=== PATIENT | male | born 1995 | race Caucasian/White ===

== ENCOUNTER 2017-01-19 04:11 | Emergency (ER) | payer BC, OTHER ==
[~2017-01-19] VITALS: Ht 176.5 cm; Wt 70.0 kg
[2017-01-19 04:17] VITALS: TEMP 36.6; Ht 176.5 cm; Wt 70.0 kg
[2017-01-19 04:25] VITALS: O2SAT 98
--- NOTE | 2017-01-19 04:33 | EMERGENCY ROOM VISIT NOTE ---
History Report prepared by Brianna: Pratima Murcia Under the Supervision of: Dr. Christian Veloz D.O. First contact with patient: 04:15 Chief Complaint: ALCOHOL OVERDOSE Stated Complaint: ALCOHOL OVERDOSE History of Present Illness The patient is a 21 year old male who presents to the Emergency Room with complaints of persistent alcohol intoxication starting ORTHOPAEDIC DOCTOR. The patient presents to the ED by EMS. [place] by [place] police. He states that he was just trying to get home. He is here visiting his friends. He states that he "had a beer". He denies any abdominal pain or injury. He denies any drug use or tobacco use. He denies being on medications or previous surgery. Source of History: patient, nursing staff Onset: ORTHOPAEDIC DOCTOR Position: other (global) Quality: other (alcohol intoxication) Timing: other (persistent) Associated Symptoms: No abdominal pain Note: Pt denies any injury. Review of Systems See HPI for pertinent positives & negatives. A total of 10 systems reviewed and were otherwise negative. Past Medical & Surgical Medical Problems: (1) No Known Active Medical Problems Family History No pertinent family history stated. Social History Occupation Status: student Current/Historical Medications No Active Prescriptions or Reported Meds Allergies Coded Allergies: No Known Allergies (Unverified , 01/19/17) Physical Exam Vital Signs Date Time Temp Pulse Resp B/P (MAP) Pulse Ox O2 Delivery O2 Flow Rate FiO2 01/19/17 05:19 61 18 116/56 98 01/19/17 04:25 98 Room Air 01/19/17 04:17 98 Room Air 01/19/17 04:17 36.6 93 18 148/89 98 Room Air 01/19/17 04:17 93 Physical Exam GENERAL: Patient is awake, alert, non anxious appearing. EYES: The conjunctivae are clear. The pupils are dilated and reactive to light bilaterally. EARS, NOSE, MOUTH AND THROAT: The nose is without any evidence of any deformity. Mucous membranes are moist tongue is midline NECK: The neck is nontender and supple. RESPIRATORY: Normal respiratory effort is noted there is no evidence of wheezing rhonchi or rales CARDIOVASCULAR: Regular rate and rhythm noted there no murmurs rubs or gallops normal S1 normal S2 GASTROINTESTINAL: The abdomen is soft. Bowel sounds are present in all quadrants. Abdomen is nontender MUSCULOSKELETAL/EXTREMITIES: There is no evidence of gross deformity full range of motion is noted in the hips and shoulders SKIN: There is no obvious evidence of any rash. There are no petechiae, pallor or cyanosis noted. NEUROLOGIC: Patient is awake alert and oriented x3 Medical Decision & Procedures Laboratory Results 01/19/17 04:17 Test 01/19/17 04:17 Anion Gap 7.0 mmol/L (3-11) Est Creatinine Clear Calc Drug Dose 106.9 ml/min Estimated GFR () 112.2 Estimated GFR (Non- 96.8 BUN/Creatinine Ratio 10.8 (10-20) Calcium Level 8.8 mg/dl (8.5-10.1) Ethyl Alcohol mg/dL 248.0 mg/dl (0-3) Laboratory results per my review. ED Course 0418: The patient was evaluated in room A12A. A complete history and physical examination were performed. 0528: Upon reevaluation, the patient is resting comfortably. I discussed the results and treatment plan with him. He verbalized agreement of the treatment plan. He was discharged home with a sober friend. Medical Decision Prior records/ancillary studies reviewed. Triage Nursing notes reviewed. Additional history obtained from EMS. The patient's history was concerning for altered mental status and a possible alcohol overdose. Differential diagnosis: Etiologies such as alcohol intoxication, toxicologic, infection, hypoglycemia, electrolyte abnormalities, cardiac sources, intracerebral event, neurologic, as well as others were entertained. Medication Reconciliation: I attest that I have personally reviewed the patient' s current medications list. Blood pressure screening: Patient was found to have normal blood pressure on screening and does not require follow-up. The patient is a 21-year-old male who presented to the emergency department for an evaluation of alcohol intoxication. The patient had no signs of trauma and there is no history of trauma. The patient was not severely alcohol intoxicated and was awake and alert upon arrival to the emergency department. I discussed the patient's laboratory results with him. He was reevaluated into he was no longer clinically intoxicated. He was able to be discharged to home. He was encouraged to avoid any further alcoholic beverages. He is also encouraged to avoid operating any heavy machinery including driving a vehicle for next 24 hours. He was also encouraged return to the emergency apartment immediately if symptoms change worsen or the need arises. Impression Primary Impression: Alcohol intoxication Scribe Attestation The scribe's documentation has been prepared under my direction and personally reviewed by me in its entirety. I confirm that the note above accurately reflects all work, treatment, procedures, and medical decision making performed by me. Departure Information Dispostion Home / Self-Care Prescriptions No Active Prescriptions or Reported Meds Referrals No Doctor, Assigned (PCP) Forms HOME CARE DOCUMENTATION FORM, IMPORTANT VISIT INFORMATION Patient Instructions ED Alcohol Intoxication, My [facility] Additional Instructions Drink plenty clear liquids. Avoid any further alcoholic beverages. Do not operate any heavy machinery including driving a vehicle for next 24 hours because your alcohol level still be elevated. Problem Qualifiers Primary Impression: Alcohol intoxication Complication of substance-induced condition: uncomplicated Qualified Codes: F10.920 - Alcohol use, unspecified with intoxication, uncomplicated
[2017-01-19 04:49] LABS: BUN/CREATININE RATIO 10.8 (10-20); CALCIUM 8.8 mg/dl (8.5-10.1); CREATININE 1.1 mg/dl (0.60-1.40); POTASSIUM 3.9 mmol/L (3.5-5.1)
[2017-01-19 05:19] VITALS: BP 116/56; PULSE 61; O2SAT 98
== END 2017-01-19 05:21 | disposition home or self-care (01) ==
LOC: C.EDA 04:13
DX: F10.920 Alcohol use, unspecified with intoxication, uncomplicated (principal); Y90.8 Blood alcohol level of 240 mg/100 ml or more